=== PATIENT | male | born 1960 | race American Indian/Alaskan Native ===

== ENCOUNTER 2017-01-05 00:11 | Emergency (ER) | payer BC, OTHER ==
[2017-01-05 00:49] VITALS: BP 150/88
[2017-01-05] MEDS ORDERED: DUONEB 0.5 MG-3 MG/3 ML SOLN IH ONE ×2 (00:56→00:58)
--- NOTE | 2017-01-05 03:30 | Emergency Department Report ---
HPI - General Chief Complaint: Upper Respiratory Infection Time Seen by Provider: 01/05/17 03:25 - HPI HPI: Patient is a 56-year-old male with a history of asthma who presents to ED complaining of dry productive cough 2 days. Patient states he had a recent cold 2-3 weeks ago in size probably. He was given some prednisone. Patient is on nebulizer and inhalers at home. Patient denies fever/chills/shortness of breath/chest pain/abdominal pain/nausea /vomiting or any other problems. ED Past Medical Hx - Past Medical History Previous Medical History?: Yes Hx Hypertension: Yes Hx Asthma: Yes Additional medical history: SLEEP APNEA, Uses a CPAP at night, LUNG PROBLEM - Surgical History Additional Surgical History: LYMPH REMOVAL 2010 - Social History Smoking Status: Never Smoker Substance Use Type: None - Medications Home Medications: Home Medications Medication Instructions Recorded Confirmed Last Taken Type Olmesartan/Hydrochlorothiazide 1 tab PO QDAY 12/04/14 02/16/15 02/16/15 History [Benicar HCT 20-12.5 mg] Advair Diskus 250-50 mcg 02/16/15 02/16/15 Unknown History Benicar 02/16/15 02/16/15 Unknown History Acetaminophen/Codeine [Tylenol #3] 1 tab PO TID PRN #20 tab 02/17/15 Unknown Rx Methocarbamol [Robaxin] 750 mg PO BID #20 tab 02/17/15 Unknown Rx Acetamin/Codeine 120-12Mg/5 ml 5 - 10 ml PO TID PRN #60 ml 08/18/15 Unknown Rx [Tylenol/Codeine] Azithromycin [Zithromax Z-JOSE] 250 mg PO DAILY #6 tab 08/18/15 Unknown Rx Acetamin/Codeine 120-12Mg/5 ml 10 ml PO TID #80 ml 01/05/17 Unknown Rx [Tylenol/Codeine 120-12 mg/5 ml] Azithromycin [Zithromax TAB] 250 mg PO DAILY #4 tablet 01/05/17 Unknown Rx predniSONE [Deltasone] 40 mg PO QDAY 5 Days 01/05/17 Unknown Rx ED Review of Systems ROS: Stated complaint: WHEEZING,COUGH Other details as noted in HPI Constitutional: denies: chills, fever, malaise Eyes: denies: eye pain, eye discharge, vision change ENT: denies: ear pain, throat pain, dental pain, hearing loss Respiratory: cough. denies: shortness of breath, wheezing Cardiovascular: denies: chest pain, palpitations Endocrine: no symptoms reported. denies: flushing Gastrointestinal: denies: abdominal pain, nausea, vomiting, diarrhea, constipation Genitourinary: denies: urgency, dysuria, frequency, hematuria Musculoskeletal: denies: back pain, joint swelling, arthralgia Skin: denies: rash, lesions, pruritus Neurological: denies: headache, weakness, paresthesias, confusion Psychiatric: denies: anxiety, depression Hematological/Lymphatic: denies: easy bleeding, easy bruising Physical Exam - Physical Exam Vital Signs: Vital Signs 01/05/17 00:40 Temperature 98.0 F Pulse Rate 78 Respiratory 18 Rate Blood Pressure 150/88 O2 Sat by Pulse 96 Oximetry Physical Exam: GENERAL: Alert and oriented x3, no apparent distress, Normal Gait, atraumatic. HEAD: Head is normocephalic and a-traumatic. EYES: Extra ocular muscles are intact. Pupils are equal, round, and reactive to light and accommodation. EARS: symetrical, atraumatic, non tender, ear canal clear and moderate cerumen, tympanic membrance non inflamed. gross auditory nml bilaterally. NOSE: Nose symetrical, Nontender,Nares appeared normal. MOUTH:Mouth is well hydrated and without lesions. Tonsils nonerythematous or swollen, Uvula midline, Tongue not elevated. Mucous membranes are moist. Posterior pharynx clear, no exudate or lesions. Patent airways. NECK: Supple. Non edematous, No carotid bruits. No lymphadenopathy or thyromegaly. LUNGS: Symetrical with respiration, No wheezing, no rales or crackles, CTAB. HEART: S1, S2 present, regular rate and rhythm without murmur, no rubs, no gallops. ABDOMEN: No organomegaly was noted,Positive bowel sounds, soft, and non- distended. . Nontender to palpation on all Quadrants, NO CVA tenderness. EXTREMITIES/MUSCULOSKELETAL: No cyanosis, clubbing, rash, lesions or edema. a NEUROLOGIC: No focal Deficit, Cranial nerves II through XII are grossly intact. No loss of sensation, SKIN: Warm and dry, No lesions, No ulceration or induration present. ED Course Vital Signs 01/05/17 00:40 Temperature 98.0 F Pulse Rate 78 Respiratory 18 Rate Blood Pressure 150/88 O2 Sat by Pulse 96 Oximetry ED Medical Decision Making - Medical Decision Making 56-year-old male presents with bronchitis. ED course: Patient received 2 respiratory breathing treatments. Patient also received 10 male he later is of Tylenol with codeine and 60 mg of prednisone Discussed with patient to medication unless prescribed. Discussed with patient follow-up with primary care doctor. Discussed continue albuterol nebulizer and inhaler as needed Patient's vital signs are stable. Patient is not in any acute or respiratory distress. Critical care attestation.: If time is entered above; I have spent that time in minutes in the direct care of this critically ill patient, excluding procedure time. ED Disposition Clinical Impression: History of asthma Acute bronchitis Qualifiers: Bronchitis organism: unspecified organism Qualified Code(s): J20.9 - Acute bronchitis, unspecified Disposition: DISCHARGED TO HOME OR SELFCARE Is pt being admited?: No Does the pt Need Aspirin: No Condition: Stable Instructions: Acute Bronchitis (ED) Prescriptions: Acetamin/Codeine 120-12Mg/5 ml [Tylenol/Codeine 120-12 mg/5 ml] 10 ml PO TID # 80 ml Azithromycin [Zithromax TAB] 250 mg PO DAILY #4 tablet predniSONE [Deltasone] 40 mg PO QDAY 5 Days Referrals: PRIMARY CARE, [Primary Care Provider] - 3-5 Days LIDIA LINTON MD [Referring] - 3-5 Days DELBERT LATIF MD [Referring] - 3-5 Days [facility] [Outside] - 3-5 Days [facility] [Outside] - 3-5 Days [facility] [Outside] - 3-5 Days Forms: Work/School Release Form(ED) Time of Disposition: 04:12
[2017-01-05] MEDS ORDERED: TYLENOL/CODEINE PO ONE (03:52)
[2017-01-05] MEDS ORDERED: DELTASONE PO ONE (03:52)
[2017-01-05] MEDS ORDERED: ZITHROMAX PO ONE (03:52)
== END 2017-01-05 04:24 | disposition home or self-care (01) ==
LOC: ED 00:11
DX: J20.9 Acute bronchitis, unspecified (principal); J45.909 Unspecified asthma, uncomplicated; I10 Essential (primary) hypertension
CPT/HCPCS: 94640; 99283; J7512